=== PATIENT | female | born 1990 | race Caucasian/White ===

== ENCOUNTER 2019-10-21 20:37 | Emergency (ER) | payer OTHER, MEDICAID ==
[~2019-10-21] VITALS: Ht 154.9 cm; Wt 64.4 kg
[2019-10-21 21:05] LABS: CALCIUM 8.9 mg/dL (8.5-10.1); CREATININE 0.8 mg/dL (0.6-1.3); POTASSIUM 3.2 mmol/L (3.5-5.1)
[2019-10-21 21:09] LABS: ALBUMIN 3.9 g/dL (3.4-5.0); TOTAL BILIRUBIN 0.6 mg/dL (<0.1-1.0)
[2019-10-21 21:17] LABS: ABSOLUTE BASOPHILS 0.1 thou/uL (0.0-0.2); ABSOLUTE EOSINOPHILS 0.6 thou/uL (0.0-0.7); ABSOLUTE LYMPHOCYTES 3.2 thou/uL (0.8-5.3); ABSOLUTE MONOCYTES 0.7 thou/uL (0.0-1.2); ABSOLUTE NEUTROPHILS 8.5 thou/uL (1.6-8.1); EOSINOPHILS 4.9 %; HEMATOCRIT 40.8 % (37.0-47.0); HEMOGLOBIN 13.8 gm/dL (12.0-15.0); LYMPHOCYTES 24.2 %; MCH 29.5 pg (26.0-34.0); MCHC 33.7 g/dL (28.0-37.0); MCV 87.5 fL (80.0-100.0); MONOCYTES 5.4 %; MPV 9.1 fl. (7.2-11.1); NUCLEATED RBCS 0 /100WBC; PLATELET COUNT* 307 thou/uL (150-400); POLYS 64.5 %; RBC 4.67 mil/uL (4.20-5.00); RDW-CV 14.5 % (10.5-14.5); WBC 13.1 thou/uL (4.0-11.0)
[2019-10-21 21:56] LABS: URINE BILIRUBIN NEGATIVE (Negative); URINE BLOOD NEGATIVE (Negative); URINE CLARITY CLEAR; URINE COLOR YELLOW; URINE GLUCOSE-RANDOM NEGATIVE (Negative); URINE KETONES NEGATIVE (Negative); URINE LEUKOCYTES-REFLEX NEGATIVE (Negative); URINE NITRITE-REFLEX NEGATIVE (Negative); URINE PROTEIN NEGATIVE (Negative); URINE SPECIFIC GRAVITY >= 1.030 (1.005-1.030); URINE UROBILINOGEN 0.2 E.U./dl (0.2-1.0)
[2019-10-21 22:19] LABS: AMP/METHAMP Negative (Negative); BARBITURATES Negative (Negative); BENZODIAZEPINES Negative (Negative); COCAINE Negative (Negative); METHADONE Negative (Negative); OPIATES Negative (Negative); PCP Negative (Negative); THC Negative (Negative)
[2019-10-21 23:07] VITALS: BP 112/64
--- NOTE | 2019-10-22 16:15 | EKG ---
[place] [address] ELECTROCARDIOGRAM REPORT Name: CHAVEZ GOODWIN [id number] Admission: 10/21/19 Attend Phys: Discharge: 10/21/19 Date of : 89 Report #: [id number] THIS REPORT FOR: //name// [facility] ED Test Date: 2019-10-21 Test Time: 21:03:33 Pat Name: CHAVEZ GOODWIN Department: Patient ID: [id number] Room: Gender: F Asset Analyst: MAYNOR : 1990 Requested By: Leticia Robertson Order Number: [id number] MD: Shay Martin Measurements Intervals [place] Rate: 80 P: 17 OK: 108 QRS: 21 QRSD: 92 T: 43 QT: 392 QTc: 453 Interpretive Statements Sinus rhythm Short OK interval No previous ECG available for comparison Electronically Signed On 10-22-2019 16:15:05 [employer] by Shay Martin [email or web address] <ELECTRONICALLY SIGNED> By: Shay Martin MD, [facility] 10/22/19 1615 [id number] Shay Martin MD, FACC /EPI
== END 2019-10-21 23:07 | disposition home or self-care (01) ==
LOC: M.ERS 20:37
PROVIDERS: Emergency Medicine
DX: S61.217A Laceration without foreign body of left little finger without damage to nail, initial encounter (principal); S09.8XXA Other specified injuries of head, initial encounter; R56.9 Unspecified convulsions; Z88.5 Allergy status to narcotic agent; X58.XXXA Exposure to other specified factors, initial encounter; Y93.89 Activity, other specified; Y92.89 Other specified places as the place of occurrence of the external cause; Y99.8 Other external cause status

== ENCOUNTER 2019-12-17 17:32 | Emergency (ER) | payer OTHER ==
[~2019-12-17] VITALS: Ht 157.5 cm; Wt 59.0 kg
[2019-12-17] MEDS ORDERED: DEPRESSION MED (17:49)
[2019-12-17] MEDS ORDERED: CLONAZEPAM 0.50.5 M1 PO (17:50)
[2019-12-17 18:34] LABS: URINE BILIRUBIN NEGATIVE (Negative); URINE BLOOD NEGATIVE (Negative); URINE CLARITY CLEAR; URINE COLOR YELLOW; URINE GLUCOSE-RANDOM NEGATIVE (Negative); URINE KETONES NEGATIVE (Negative); URINE LEUKOCYTES-REFLEX TRACE (Negative); URINE NITRITE-REFLEX NEGATIVE (Negative); URINE PROTEIN NEGATIVE (Negative); URINE UROBILINOGEN 0.2 E.U./dl (0.2-1.0)
[2019-12-17 18:41] LABS: INFLUENZA A ANTIGEN Negative (Negative); INFLUENZA B ANTIGEN Negative (Negative)
[2019-12-17 18:42] LABS: MUCUS None Seen strn/LPF (None Seen); SQUAMOUS 4-10 Moderate /LPF (0-3)
[2019-12-17 18:43] LABS: BACTERIA-REFLEX 1-9 Few /HPF (None Seen); CASTS None Seen /LPF (None Seen); CRYSTALS None Seen /LPF (None Seen); URINE RBC None Seen /HPF (0-2); URINE WBC-REFLEX 0-5 Rare /HPF (0-5)
[2019-12-17] MEDS ORDERED: AUGMENTIN 875-1 EACH PO (20:06)
[2019-12-17] MEDS ORDERED: ONDANSETRON HCL4 M2 PO (20:06)
[2019-12-17 20:25] VITALS: BP 134/87
== END 2019-12-17 20:26 | disposition home or self-care (01) ==
LOC: M.ERS 17:32
PROVIDERS: Nurse Practitioner Family
DX: J06.9 Acute upper respiratory infection, unspecified (principal); M41.9 Scoliosis, unspecified; Z88.5 Allergy status to narcotic agent; Z98.890 Other specified postprocedural states

== ENCOUNTER 2020-03-31 04:25 | Emergency (ER) | payer OTHER, MEDICAID ==
[~2020-03-31] VITALS: Ht 157.5 cm; Wt 72.6 kg
[~2020-03-31 04:25] MED LIST: AUGMENTIN 875-1 EACH PO; CLONAZEPAM 0.50.5 M1 PO; DEPRESSION MED; ONDANSETRON HCL4 M2 PO
[2020-03-31 05:06] VITALS: BP 112/54
== END 2020-03-31 05:06 | disposition home or self-care (01) ==
LOC: M.ERS 04:25
DX: B34.9 Viral infection, unspecified (principal); M41.9 Scoliosis, unspecified; Z88.5 Allergy status to narcotic agent; Z98.890 Other specified postprocedural states

== ENCOUNTER 2020-05-15 18:55 | Emergency (ER) | payer OTHER ==
[~2020-05-15] VITALS: Ht 157.5 cm; Wt 61.2 kg
[2020-05-15 20:34] VITALS: BP 125/70
== END 2020-05-15 20:35 | disposition home or self-care (01) ==
LOC: M.ERS 18:55
DX: J06.9 Acute upper respiratory infection, unspecified (principal); Z20.828 Contact with and (suspected) exposure to other viral communicable diseases; Z98.890 Other specified postprocedural states; Z98.51 Tubal ligation status; Z88.6 Allergy status to analgesic agent